=== PATIENT | male | born 1960 | race Caucasian/White ===

== ENCOUNTER 2018-01-31 11:50 | Emergency (ER) | payer OTHER ==
[~2018-01-31] VITALS: Ht 172.7 cm; Wt 87.0 kg
[~2018-01-31 11:50] MED LIST: CARV12.5 PO; MEVA40TA6 PO; PROM25TA5 PO; TAMS0.4C67 PO; ULTR50TA PO; XANA0.5T PO
[2018-01-31 11:52] VITALS: BP 192/103; PULSE 71; RESP 18; TEMP 98.8; O2SAT 99
--- NOTE | 2018-01-31 12:10 | PD ---
HPI Chief Complaint: Back/ Neck Pain or Injury Time Seen by Provider: 11:57 Travel History International Travel<30 days: No Contact w/Intl Traveler<30days: No Traveled to known affect area: No History of Present Illness HPI 57-year-old male presents to the emergency room for evaluation of left sided back pain radiating down his left lower extremity for the past 2 weeks. He denies any trauma or injury. Patient went to an urgent care center about 2 weeks ago and was given prescriptions for tramadol, prednisone, Flexeril, and 600 mg ibuprofen. States he has been taking medicine with moderate relief in symptoms. He went to his primary care physician for follow-up and had physical therapy ordered. His first PT session was supposed to be today but he was in too much pain. Pain is intermittent, worse with certain movements or range of motion. Certain positions improve pain. He gets occasional left lower extremity paresthesias especially localized to the foot. Patient denies fever, chills, night sweats, weight loss, paresthesias, saddle anesthesia, loss of bowel or bladder control, or IV drug use. No history of chronic back pain or sciatica. PFSH Past Medical History Arthritis: No Asthma: No Autoimmune Disease: No Blood Disorders: No Anxiety: No Depression: No Heart Rhythm Problems: No Cancer: No Cardiovascular Problems: No High Cholesterol: No Chemotherapy: No Chest Pain: No Congestive Heart Failure: No COPD: No Cerebrovascular Accident: No Diabetes: No Diminished Hearing: No Endocrine: No GERD: No Glaucoma: No Genitourinary: No Headaches: No Hepatitis: No Hiatal Hernia: No Hypertension: Yes Immune Disorder: No Kidney Stones: No Musculoskeletal: No Neurologic: No Psychiatric: No Reproductive: No Respiratory: No Migraines: No Myocardial Infarction: No Radiation Therapy: No Renal Failure: No Seizures: No Sickle Cell Disease: No Sleep Apnea: No Thyroid Disease: No Ulcer: No ?: Not Past Surgical History Abdominal Surgery: No AICD: No Appendectomy: Yes Cardiac Surgery: No Cholecystectomy: No Ear Surgery: No Endocrine Surgery: No Eye Surgery: No Genitourinary Surgery: No Gynecologic Surgery: No Insulin Pump: No Joint Replacement: No Oral Surgery: No Pacemaker: No Thoracic Surgery: No Family History Family Hypercholesterolemia: Yes Social History Alcohol Use: Yes (OCC ) Tobacco Use: Yes (CIGARS) Substance Use: No Allergies-Medications (Allergen,Severity, Reaction): Coded Allergies: amoxicillin (Unverified Allergy, Intermediate, hives, 01/31/18) erythromycin base (Unverified Allergy, Intermediate, UPSET STOMACH, VOMITING, 01/31/18) Reported Meds & Prescriptions Reported Meds & Active Scripts Active Reported Oxycodone-Acetaminophen 7.5-325 mg Tab 1 Tab PO Q6H PRN Lisinopril 5 Mg Tab 5 Mg PO DAILY@1600 Tramadol (Tramadol HCl) 50 Mg Tab 50 Mg PO Q4H PRN Lovastatin 40 Mg Tab 40 Mg PO DAILY Coreg (Carvedilol) 25 Mg Tab 25 Mg PO BID Review of Systems Except as stated in HPI: all other systems reviewed are Neg Physical Exam Narrative GENERAL: Well-nourished, well-developed male in no acute distress. Afebrile. Ambulatory. SKIN: Focused skin assessment warm/dry. There is a small 2-3 cm area in diameter lipoma to the left buttocks without surrounding erythema. No fluctuance. Nontender. HEAD: Normocephalic. EYES: No scleral icterus. No injection or drainage. NECK: Supple, trachea midline. No JVD or lymphadenopathy. CARDIOVASCULAR: Regular rate and rhythm without murmurs, gallops, or rubs. RESPIRATORY: Breath sounds equal bilaterally. No accessory muscle use. BACK: Mild tenderness to palpation of the lumbar region. No obvious deformity. 2+ patellar and Achilles reflexes are equal bilaterally. Positive straight leg raise. Data Data Last Documented VS Vital Signs Date Time Temp Pulse Resp B/P (MAP) Pulse Ox O2 Delivery O2 Flow Rate FiO2 01/31/18 11:52 98.8 71 18 192/103 (132) 99 Orders Orders Spine, Lumbar - Ltd (Ap & Lat) (01/31/18 ) Ketorolac Inj (Toradol Inj) (01/31/18 13:15) Dexamethasone Inj (Decadron Inj) (01/31/18 13:15) Orphenadrine Inj (Norflex Inj) (01/31/18 13:15) Famotidine (Pepcid) (01/31/18 13:15) MDM Medical Decision Making Medical Screen Exam Complete: Yes Emergency Medical Condition: Yes Medical Record Reviewed: Yes Differential Diagnosis Sciatica, chronic back pain, muscle strain, muscle spasm Narrative Course 57-year-old otherwise old female presents to the emergency room for evaluation of left lower back pain radiating down his left lower extremity for the past several weeks. Patient went to his primary care physician was given multiple medications and took them without significant relief in symptoms. He was also supposed to start physical therapy today but could not go in because his blood pressure was too high and his pain was too severe. He denies trauma or injury. No midline tenderness of the spine. No focal neurological deficits. No red flag symptoms. Patient was offered x-ray which shows mild degenerative changes of the lumbar spine and mild disc space narrowing at L5-S1. He was given Decadron, Norflex, and Toradol in the emergency room. Patient was reassured and told to follow-up with his primary care physician for continued management and possible further imaging, continue physical therapy, and take his previously prescribed medications. He understands and agrees to plan. Diagnosis Primary Impression: Sciatica Qualified Codes: M54.32 - Sciatica, left side Referrals: Primary Care Physician Departure Forms: Tests/Procedures, Work Release Enter return to work date: February 05, 2018 Additional Instructions: Rest and drink plenty of fluids. Gentle exercises. Follow-up with your physical therapist. Take your prescribed medications as directed. Apply ice to the affected area for 20 minutes at a time, as needed for pain and swelling. Follow-up with a primary care physician. Return to the emergency room for worsening symptoms. Med/Other Pt SpecificInfo: Prescription(s) given Disposition: 01 DISCHARGE HOME Condition: Stable Elyse Rivera January 31, 2018 12:10
[2018-01-31] MEDS ORDERED: LISI-519 PO (12:13)
[2018-01-31] MEDS ORDERED: LOVA40TA PO (12:13)
[2018-01-31] MEDS ORDERED: TRAM50TA PO (12:13)
[2018-01-31] MEDS ORDERED: OXYC1TAB35 PO (12:13)
[2018-01-31] MEDS ORDERED: CORE25TA PO (12:13)
--- NOTE | 2018-01-31 12:57 | RADRPT ---
EXAM DATE: 01/31/2018 12:41 PM EDT AGE/SEX: 57 years / Male INDICATIONS: Left lumbar spine pain that shoots down anterior leg. CLINICAL DATA: This is the patient's initial encounter. Patient reports that signs and symptoms have been present for 2 weeks and indicates a pain score of 10/10. MEDICAL/SURGICAL HISTORY: None. None. COMPARISON: No prior exams available for comparison. FINDINGS: The vertebral bodies are in normal alignment without evidence of compression deformity. There are mil d degenerative changes noted throughout the lumbar spine. There is some mild disc space narrowing at L5-S1. Bone density is normal for age. Soft tissues are grossly intact. There is good alignment of the SI joints. Atherosclerotic changes in the aorta. CONCLUSION: Mild degenerative changes involving the lumbar spine. Electronically signed by: Neno Smith MD 01/31/2018 12:56 PM EDT
[2018-01-31] MEDS ORDERED: ORPHENADRINE INJ 60 MG/2 ML AMP IM ONE (13:15)
[2018-01-31] MEDS ORDERED: DEXAMETHASONE SOD PHOS 4 MG/ML VIAL IM ONE (13:15)
[2018-01-31] MEDS ORDERED: FAMOTIDINE 20 MG TAB PO ONE (13:15)
[2018-01-31] MEDS ORDERED: KETOROLAC TROMETHAMINE 60 MG/2 ML (IM) VIAL IM ONE (13:15)
[2018-01-31 13:30] VITALS: BP 155/88
== END 2018-01-31 13:36 | disposition home or self-care (01) ==
LOC: PHEFT 11:50
DX: M54.32 Sciatica, left side (principal); I10 Essential (primary) hypertension; Z72.0 Tobacco use; Z88.1 Allergy status to other antibiotic agents; Z88.8 Allergy status to other drugs, medicaments and biological substances; Z88.0 Allergy status to penicillin
CPT/HCPCS: 72100; 96372; 99283; J1100; J1885; J2360